=== PATIENT | male | born 1990 | race Caucasian/White ===

== ENCOUNTER 2018-05-28 15:44 | Emergency (ER) | payer MEDICAID | END 2018-05-28 16:02 | disposition left against medical advice (07) | LOC: ER 15:44 | DX: Z11.3 Encounter for screening for infections with a predominantly sexual mode of transmission (principal); Z53.21 Procedure and treatment not carried out due to patient leaving prior to being seen by health care provider ==

== ENCOUNTER 2018-07-20 13:30 | Emergency (ER) | payer MEDICAID ==
[~2018-07-20] VITALS: Ht 175.3 cm; Wt 75.0 kg
[2018-07-20 17:23] VITALS: BP 136/72
== END 2018-07-20 17:24 | disposition home or self-care (01) ==
LOC: ER 13:51
DX: Z76.0 Encounter for issue of repeat prescription (principal); Z20.2 Contact with and (suspected) exposure to infections with a predominantly sexual mode of transmission; F12.10 Cannabis abuse, uncomplicated
CPT/HCPCS: 99281

== ENCOUNTER 2019-01-14 01:07 | Emergency (ER) | payer MEDICAID ==
[~2019-01-14] VITALS: Ht 172.7 cm; Wt 72.0 kg
[2019-01-14 01:18] VITALS: BP 106/58
[2019-01-14] MEDS ORDERED: LIDOCAINE HCL 2% 5ML SYRINGE IV ONE (04:15)
[2019-01-14] MEDS ORDERED: LIDOCAINE HCL/PF 2% 20MG/ML 5 ML/VIAL INJ NR (04:30)
== END 2019-01-14 06:19 | disposition home or self-care (01) ==
LOC: ER 01:07
DX: L60.0 Ingrowing nail (principal); L03.031 Cellulitis of right toe
CPT/HCPCS: 11730; 99283; J3490; Z7610

== ENCOUNTER 2020-01-28 21:09 | Emergency (ER) | payer MEDICAID ==
[~2020-01-28] VITALS: Ht 172.7 cm; Wt 73.0 kg
[2020-01-28 21:17] VITALS: BP 120/76
[2020-01-28 21:44] LABS: CLARITY URINE CLEAR (CLEAR); COLOR URINE YELLOW (YELLOW); KETONES URINE 1+ (NEGATIVE); LEUKOCYTE ESTERASE URINE NEGATIVE (NEGATIVE); NITRITE URINE NEGATIVE (NEGATIVE); OCCULT BLOOD URINE NEGATIVE (NEGATIVE); PROTEIN URINE NEGATIVE (NEGATIVE); SPECIFIC GRAVITY URINE 1.013 (1.005-1.030); UROBILINOGEN URINE 0.2 E.U./dL (0.2-1.0)
[2020-01-28] MEDS ORDERED: LORAZEPAM 1MG TABLET PO ONE (21:45)
[2020-01-28] MEDS ORDERED: BLOOD SUGAR DIAGNOSTIC STRIP TEST ONE (21:45)
[2020-01-28 21:56] LABS: *AMPHETAMINES SCREEN URINE NEGATIVE (NEGATIVE); *BARBITURATES SCREEN URINE NEGATIVE (NEGATIVE); *BENZODIAZEPINES SCREEN URINE NEGATIVE (NEGATIVE); *COCAINE SCREEN URINE NEGATIVE (NEGATIVE); CANNABINOID URINE SCREEN PRESUMTIVE POSITIVE (NEGATIVE); METHADONE URINE SCREEN NEGATIVE (NEGATIVE); OPIATES URINE SCREEN NEGATIVE (NEGATIVE); PHENCYCLIDINE URINE SCREEN NEGATIVE (NEGATIVE)
== END 2020-01-28 22:31 | disposition home or self-care (01) ==
LOC: ER 21:09
DX: F41.9 Anxiety disorder, unspecified (principal); F43.9 Reaction to severe stress, unspecified; F32.9 Major depressive disorder, single episode, unspecified; F43.10 Post-traumatic stress disorder, unspecified
CPT/HCPCS: 80305; 81003; 82962; 93005; 99284

== ENCOUNTER 2020-03-03 15:34 | Emergency (ER) | payer MEDICAID ==
[~2020-03-03] VITALS: Ht 172.7 cm; Wt 71.0 kg
[2020-03-03 15:41] VITALS: BP 123/74
== END 2020-03-03 17:10 | disposition home or self-care (01) ==
LOC: ER 15:34
DX: R51 Headache (principal); F41.9 Anxiety disorder, unspecified; F32.9 Major depressive disorder, single episode, unspecified
CPT/HCPCS: 99281

== ENCOUNTER 2020-06-13 23:54 | Emergency (ER) | payer MEDICAID | END 2020-06-14 01:13 | disposition left against medical advice (07) | LOC: ER 23:54 | DX: Z53.21 Procedure and treatment not carried out due to patient leaving prior to being seen by health care provider (principal) ==

== ENCOUNTER 2020-06-15 03:19 | Emergency (ER) | payer MEDICAID, OTHER ==
[~2020-06-15] VITALS: Ht 180.3 cm; Wt 50.0 kg
[2020-06-15] MEDS ORDERED: ACETAMINOPHEN WITH CODEINE 300/30MG TABLET PO ONE (06:15)
[2020-06-15] MEDS ORDERED: LIDOCAINE HCL/PF 1% 10 MG/ML 5ML VIAL IJ ONE (06:30)
[2020-06-15 08:24] VITALS: BP 116/75
== END 2020-06-15 08:25 | disposition home or self-care (01) ==
LOC: ER 03:19
DX: L05.91 Pilonidal cyst without abscess (principal)
CPT/HCPCS: 72100; 99283; J3490

== ENCOUNTER 2021-03-09 03:28 | Emergency (ER) | payer MEDICAID ==
[~2021-03-09] VITALS: Ht 172.7 cm; Wt 71.0 kg
[2021-03-09] MEDS ORDERED: LIDOCAINE HCL/PF 1% 10 MG/ML 5ML VIAL INFIL ONE (04:00)
[2021-03-09] MEDS ORDERED: KETOROLAC 30MG/ML VIAL IM ONE (04:00)
[2021-03-09] MEDS ORDERED: BACITRACIN ZINC OINT UDPKT TOP ONE (04:00)
[2021-03-09 04:02] VITALS: BP 125/63
[2021-03-09] MEDS ORDERED: SULF1TAB48 PO (04:27)
[2021-03-09] MEDS ORDERED: CEPH500C2 PO (04:27)
[2021-03-09] MEDS ORDERED: IBUP-2029 PO (04:27)
== END 2021-03-09 04:48 | disposition home or self-care (01) ==
LOC: ER 03:28
DX: L05.01 Pilonidal cyst with abscess (principal); I25.2 Old myocardial infarction
CPT/HCPCS: 96372; 99283; J1885; J3490

== ENCOUNTER 2021-04-17 22:37 | Emergency (ER) | payer MEDICAID ==
[~2021-04-17] VITALS: Ht 172.7 cm; Wt 73.0 kg
[~2021-04-17 22:37] MED LIST: CEPH500C2 PO; IBUP-2029 PO; SULF1TAB48 PO
[2021-04-17 22:41] VITALS: BP 115/76
[2021-04-17] MEDS ORDERED: IBUP-2029 MT (23:24)
== END 2021-04-18 00:01 | disposition home or self-care (01) ==
LOC: ER 22:37
DX: R51.9 Headache, unspecified (principal); I25.2 Old myocardial infarction
CPT/HCPCS: 99282

== ENCOUNTER 2021-07-22 23:55 | Emergency (ER) | payer MEDICAID ==
[~2021-07-22] VITALS: Ht 172.7 cm; Wt 77.0 kg
[~2021-07-22 23:55] MED LIST changes: +IBUP-2029 MT
[2021-07-23] MEDS ORDERED: VISCOUS LIDOCAINE 2% 15 ML UDC MM ONE (00:30)
[2021-07-23] MEDS ORDERED: ACETAMINOPHEN 325MG TABLET PO ONE (00:30)
[2021-07-23 01:02] LABS: BASOPHILS % 0.4 % (0.0-2.0); EOSINOPHILS % 0.6 % (0.0-5.0); HEMATOCRIT. 45.7 % (42.0-52.0); HEMOGLOBIN. 15.2 g/dL (14.0-18.0); LYMPHOCYTES % 12.7 % (20.0-50.0); MEAN CORPUSCULAR HEMOGLOBIN 29.4 pg (28.0-32.0); MEAN CORPUSCULAR VOLUME 88.4 fL (80.0-94.0); MEAN PLATELET VOLUME 7.6 fl (7.4-10.4); MONOCYTES % 6.9 % (2.0-8.0); NEUTROPHILS % 79.4 % (40.0-76.0); PLATELET 244 x1000/uL (130-400); RED BLOOD CELL COUNT 5.18 mill/uL (4.7-6.1); RED CELL DISTRIBUTION WIDTH 13.8 % (11.6-14.6)
[2021-07-23 01:05] LABS: CHLORIDE 104 mEq/L (98-107)
[2021-07-23 01:09] LABS: ETHANOL BLOOD < 10 mg/dL
[2021-07-23] MEDS ORDERED: ALBU6.7H9 INH (01:22)
[2021-07-23] MEDS ORDERED: ACET-2708 MT (01:22)
[2021-07-23 02:00] LABS: *BENZODIAZEPINES SCREEN URINE NEGATIVE (NEGATIVE); *COCAINE SCREEN URINE NEGATIVE (NEGATIVE); METHADONE URINE SCREEN NEGATIVE (NEGATIVE); OPIATES URINE SCREEN NEGATIVE (NEGATIVE)
[2021-07-23 02:01] LABS: *AMPHETAMINES SCREEN URINE NEGATIVE (NEGATIVE); *BARBITURATES SCREEN URINE NEGATIVE (NEGATIVE); CANNABINOID URINE SCREEN NEGATIVE (NEGATIVE); PHENCYCLIDINE URINE SCREEN NEGATIVE (NEGATIVE)
[2021-07-23 02:49] VITALS: BP 128/65
== END 2021-07-23 02:51 | disposition left against medical advice (07) ==
LOC: ER 23:55
DX: R07.9 Chest pain, unspecified (principal); R51.9 Headache, unspecified; I10 Essential (primary) hypertension; R94.31 Abnormal electrocardiogram [ECG] [EKG]; I25.2 Old myocardial infarction
CPT/HCPCS: 36415; 71045; 80053; 80305; 80320; 83880; 84484; 85025; 85379; 93005; 99285; G0480

== ENCOUNTER 2023-10-15 06:53 | Emergency (ER) | payer MEDICAID, OTHER ==
[~2023-10-15] VITALS: Ht 172.7 cm; Wt 73.0 kg
[~2023-10-15 06:53] MED LIST changes: +ACET-2708 MT; +ALBU6.7H3 INH
[2023-10-15 07:34] VITALS: O2SAT 100
[2023-10-15 09:08] LABS: BASOPHILS % 0.4 % (0.0-2.0); EOSINOPHILS % 0.9 % (0.0-5.0); HEMATOCRIT. 44.4 % (42.0-52.0); HEMOGLOBIN. 14.8 g/dL (14.0-18.0); MEAN CORPUSCULAR HEMOGLOBIN 30.1 pg (28.0-32.0); MEAN CORPUSCULAR HGB CONC 33.4 g/dL (31.0-37.0); MEAN CORPUSCULAR VOLUME 90.1 fL (80.0-94.0); MEAN PLATELET VOLUME 7.3 fl (7.4-10.4); MONOCYTES % 11.9 % (2.0-8.0); NEUTROPHILS % 64.8 % (40.0-76.0); PLATELET 297 x1000/uL (130-400); RED BLOOD CELL COUNT 4.93 mill/uL (4.7-6.1); RED CELL DISTRIBUTION WIDTH 14.1 % (11.6-14.6); WHITE BLOOD COUNT 7.5 x1000/uL (4.5-11.0)
[2023-10-15 09:16] LABS: CHLORIDE 107 mEq/L (98-107); POTASSIUM 4.1 mEq/L (3.5-5.1); SODIUM 139 mEq/L (136-145)
[2023-10-15 09:17] LABS: CALCIUM 9.6 mg/dL (8.7-10.4); CARBON DIOXIDE 26 mEq/L (21-32)
[2023-10-15 09:22] LABS: CREATININE 0.9 mg/dL (0.6-1.3); GLUCOSE 94 mg/dL (70-105); UREA NITROGEN BLOOD 15 mg/dL (9-23)
[2023-10-15 09:24] LABS: ALANINE AMINOTRANSFERASE 16 IU/L (10-49); ALBUMIN 5.1 g/dL (3.2-4.8); ASPARTATE AMINOTRANSFERASE 21 IU/L (<34); BILIRUBIN TOTAL 1.4 mg/dL (0.1-1.0); PROTEIN TOTAL 8.3 g/dL (6.0-8.3); TROPONIN I HIGH SENSITIVITY 5 ng/L (3.0-53)
[2023-10-15] MEDS: ASPIRIN 325MG EC TABLET PO ONE (09:27)
[2023-10-15 11:43] LABS: TROPONIN I HIGH SENSITIVITY 5 ng/L (3.0-53)
[2023-10-15 13:11] VITALS: BP 142/89; PULSE 100; RESP 16; TEMP 98.8
== END 2023-10-15 13:07 | disposition home or self-care (01) ==
LOC: ER 06:53
DX: R07.9 Chest pain, unspecified (principal); F15.90 Other stimulant use, unspecified, uncomplicated; I25.2 Old myocardial infarction; I11.9 Hypertensive heart disease without heart failure; G43.909 Migraine, unspecified, not intractable, without status migrainosus
CPT/HCPCS: 36415; 71046; 80053; 83880; 84484; 85025; 93005; 99285

== ENCOUNTER 2023-12-03 15:06 | Emergency (ER) | payer OTHER ==
[~2023-12-03] VITALS: Ht 172.7 cm; Wt 70.3 kg
[2023-12-03 15:47] VITALS: BP 133/77; PULSE 82; RESP 16; TEMP 98.6; O2SAT 100
[2023-12-03 16:09] LABS: HEMATOCRIT 44.2 % (42.0-52.0); HEMOGLOBIN 14.8 g/dL (14.0-18.0); MEAN CORPUSCULAR HEMOGLOBIN 29.7 pg (28.0-32.0); MEAN CORPUSCULAR HGB CONC 33.5 g/dL (31.0-37.0); MEAN CORPUSCULAR VOLUME 88.8 fL (80.0-94.0); PLATELET 258 x1000/uL (130-400); RED BLOOD CELL COUNT 4.97 mill/uL (4.7-6.1); RED CELL DISTRIBUTION WIDTH 14.3 % (11.6-14.6); WHITE BLOOD COUNT 7.5 x1000/uL (4.5-11.0)
[2023-12-03 16:24] LABS: CHLORIDE 110 mEq/L (98-107); POTASSIUM 4.1 mEq/L (3.5-5.1); SODIUM 141 mEq/L (136-145)
[2023-12-03 16:25] LABS: CARBON DIOXIDE 24 mEq/L (21-32)
[2023-12-03 16:30] LABS: CREATININE 0.8 mg/dL (0.6-1.3); GLUCOSE 82 mg/dL (70-105)
[2023-12-03 16:31] LABS: UREA NITROGEN BLOOD 8 mg/dL (9-23)
[2023-12-03 16:35] LABS: TROPONIN I HIGH SENSITIVITY < 4 ng/L (3.0-53)
== END 2023-12-03 18:08 | disposition left against medical advice (07) ==
LOC: ER 15:06
DX: R42 Dizziness and giddiness (principal); Z53.21 Procedure and treatment not carried out due to patient leaving prior to being seen by health care provider
CPT/HCPCS: 36415; 80048; 84484; 85027; 93005

== ENCOUNTER 2023-12-12 20:36 | Emergency (ER) | payer MEDICAID, OTHER ==
[~2023-12-12] VITALS: Ht 172.7 cm; Wt 70.0 kg
[2023-12-12 20:49] VITALS: BP 153/96; PULSE 126; RESP 20; TEMP 98.2; O2SAT 99
[2023-12-12 23:44] LABS: BASOPHILS % 0.5 % (0.0-2.0); HEMATOCRIT. 42.7 % (42.0-52.0); HEMOGLOBIN. 14.5 g/dL (14.0-18.0); LYMPHOCYTES % 27.5 % (20.0-50.0); MEAN CORPUSCULAR HEMOGLOBIN 29.9 pg (28.0-32.0); MEAN CORPUSCULAR HGB CONC 33.9 g/dL (31.0-37.0); MEAN CORPUSCULAR VOLUME 88.2 fL (80.0-94.0); MEAN PLATELET VOLUME 7.5 fl (7.4-10.4); MONOCYTES % 8.6 % (2.0-8.0); NEUTROPHILS % 62.4 % (40.0-76.0); PLATELET 270 x1000/uL (130-400); RED BLOOD CELL COUNT 4.84 mill/uL (4.7-6.1); RED CELL DISTRIBUTION WIDTH 14.3 % (11.6-14.6); WHITE BLOOD COUNT 8.3 x1000/uL (4.5-11.0)
[2023-12-12 23:50] LABS: CARBON DIOXIDE 24 mEq/L (21-32); CHLORIDE 105 mEq/L (98-107); SODIUM 141 mEq/L (136-145)
[2023-12-12 23:51] LABS: CALCIUM 9.3 mg/dL (8.7-10.4)
[2023-12-12 23:55] LABS: CREATININE 0.9 mg/dL (0.6-1.3); GLUCOSE 89 mg/dL (70-105)
[2023-12-12 23:56] LABS: UREA NITROGEN BLOOD 11 mg/dL (9-23)
== END 2023-12-13 00:15 | disposition left against medical advice (07) ==
LOC: EDSEX → ER 20:36
DX: M54.2 Cervicalgia (principal); I25.2 Old myocardial infarction; I10 Essential (primary) hypertension; Z86.59 Personal history of other mental and behavioral disorders
CPT/HCPCS: 36415; 80048; 85025; 99283

== ENCOUNTER 2023-12-22 21:03 | Emergency (ER) | payer OTHER ==
[~2023-12-22] VITALS: Ht 172.7 cm; Wt 82.0 kg
[2023-12-22 21:13] VITALS: BP 144/101; PULSE 102; RESP 18; TEMP 98.2; O2SAT 98
[2023-12-22 22:01] LABS: BASOPHILS % 0.4 % (0.0-2.0); EOSINOPHILS % 0.7 % (0.0-5.0); HEMATOCRIT. 38.6 % (36.0-48.0); HEMOGLOBIN. 13.1 g/dL (12.0-16.0); LYMPHOCYTES % 29.7 % (20.0-50.0); MEAN CORPUSCULAR HEMOGLOBIN 29.9 pg (28.0-32.0); MEAN CORPUSCULAR HGB CONC 33.9 g/dL (31.0-37.0); MEAN CORPUSCULAR VOLUME 88.4 fL (81.0-99.0); MEAN PLATELET VOLUME 7.4 fl (7.4-10.4); NEUTROPHILS % 60.2 % (40.0-76.0); PLATELET 234 x1000/uL (130-400); RED BLOOD CELL COUNT 4.37 mill/uL (4.2-5.4); RED CELL DISTRIBUTION WIDTH 14.2 % (11.6-14.6); WHITE BLOOD COUNT 5.7 x1000/uL (4.5-11.0)
[2023-12-22 22:05] LABS: CHLORIDE 110 mEq/L (98-107); POTASSIUM 3.4 mEq/L (3.5-5.1); SODIUM 142 mEq/L (136-145)
[2023-12-22 22:06] LABS: CALCIUM 8.8 mg/dL (8.7-10.4); CARBON DIOXIDE 25 mEq/L (21-32)
[2023-12-22 22:09] LABS: HCG SCREEN NEGATIVE
[2023-12-22 22:11] LABS: CREATININE 0.8 mg/dL (0.6-1.0); GLUCOSE 90 mg/dL (70-105); UREA NITROGEN BLOOD 7 mg/dL (9-23)
[2023-12-22 22:12] LABS: TROPONIN I HIGH SENSITIVITY 4 ng/L (3.0-34)
[2023-12-22 22:13] LABS: ALANINE AMINOTRANSFERASE 14 IU/L (10-49); ALBUMIN 4.2 g/dL (3.2-4.8); ASPARTATE AMINOTRANSFERASE 19 IU/L (<34); BILIRUBIN TOTAL 1.3 mg/dL (0.1-1.0); PROTEIN TOTAL 6.5 g/dL (6.0-8.3)
== END 2023-12-22 23:56 | disposition home or self-care (01) ==
LOC: EDSEX 21:03 → ER 21:03
DX: R20.2 Paresthesia of skin (principal); F41.9 Anxiety disorder, unspecified; I10 Essential (primary) hypertension; I25.2 Old myocardial infarction; G43.909 Migraine, unspecified, not intractable, without status migrainosus; Z79.899 Other long term (current) drug therapy
CPT/HCPCS: 36415; 80053; 84484; 84703; 85025; 93005; 99284

== ENCOUNTER 2024-02-06 12:29 | Emergency (ER) | payer MEDICAID ==
[~2024-02-06] VITALS: Ht 175.3 cm; Wt 75.0 kg
[2024-02-06 12:41] VITALS: BP 159/101; RESP 18; TEMP 98.2; O2SAT 100
[2024-02-06 12:43] VITALS: PULSE 126; O2SAT 100
[2024-02-06 13:28] LABS: BASOPHILS % 0.3 % (0.0-2.0); EOSINOPHILS % 0.1 % (0.0-5.0); HEMATOCRIT. 40.1 % (36.0-48.0); HEMOGLOBIN. 13.4 g/dL (12.0-16.0); MEAN CORPUSCULAR HEMOGLOBIN 29.9 pg (28.0-32.0); MEAN CORPUSCULAR HGB CONC 33.4 g/dL (31.0-37.0); MEAN CORPUSCULAR VOLUME 89.4 fL (81.0-99.0); MEAN PLATELET VOLUME 7.6 fl (7.4-10.4); MONOCYTES % 8.1 % (2.0-8.0); NEUTROPHILS % 81.5 % (40.0-76.0); PLATELET 254 x1000/uL (130-400); RED BLOOD CELL COUNT 4.49 mill/uL (4.2-5.4); RED CELL DISTRIBUTION WIDTH 14.4 % (11.6-14.6); WHITE BLOOD COUNT 8.9 x1000/uL (4.5-11.0)
[2024-02-06 13:33] LABS: CHLORIDE 104 mEq/L (98-107); POTASSIUM 2.9 mEq/L (3.5-5.1); SODIUM 136 mEq/L (136-145)
[2024-02-06 13:34] LABS: CALCIUM 9.6 mg/dL (8.7-10.4); CARBON DIOXIDE 25 mEq/L (21-32)
[2024-02-06 13:39] LABS: CREATININE 0.7 mg/dL (0.6-1.0); GLUCOSE 103 mg/dL (70-105); UREA NITROGEN BLOOD 7 mg/dL (9-23)
[2024-02-06 13:42] LABS: TROPONIN I HIGH SENSITIVITY 5 ng/L (3.0-34)
[2024-02-06] MEDS: POTASSIUM CHLORIDE 20MEQ TABLET SR PO NR (14:46)
== END 2024-02-06 15:21 | disposition home or self-care (01) ==
LOC: ER 12:36
DX: E87.6 Hypokalemia (principal); F15.90 Other stimulant use, unspecified, uncomplicated; F41.9 Anxiety disorder, unspecified; I25.2 Old myocardial infarction; I10 Essential (primary) hypertension; Z86.59 Personal history of other mental and behavioral disorders
CPT/HCPCS: 36415; 80048; 84484; 85025; 93005; 99284

== ENCOUNTER 2024-02-06 21:23 | Emergency (ER) | payer MEDICAID ==
[~2024-02-06] VITALS: Ht 177.8 cm; Wt 73.0 kg
[2024-02-06 21:27] VITALS: BP 147/98; PULSE 98; RESP 16; TEMP 98; O2SAT 98
[2024-02-07 00:16] LABS: BASOPHILS % 0.5 % (0.0-2.0); EOSINOPHILS % 1.4 % (0.0-5.0); HEMATOCRIT. 41.2 % (36.0-48.0); MEAN CORPUSCULAR HEMOGLOBIN 30.6 pg (28.0-32.0); MEAN PLATELET VOLUME 7.3 fl (7.4-10.4); NEUTROPHILS % 66.1 % (40.0-76.0); PLATELET 265 x1000/uL (130-400); RED BLOOD CELL COUNT 4.58 mill/uL (4.2-5.4); RED CELL DISTRIBUTION WIDTH 14.6 % (11.6-14.6); WHITE BLOOD COUNT 6.9 x1000/uL (4.5-11.0)
[2024-02-07 00:21] LABS: CHLORIDE 107 mEq/L (98-107); POTASSIUM 3.6 mEq/L (3.5-5.1); SODIUM 139 mEq/L (136-145)
[2024-02-07 00:22] LABS: CALCIUM 9.5 mg/dL (8.7-10.4); CARBON DIOXIDE 25 mEq/L (21-32)
[2024-02-07 00:27] LABS: GLUCOSE 96 mg/dL (70-105); UREA NITROGEN BLOOD 10 mg/dL (9-23)
[2024-02-07 00:28] LABS: TROPONIN I HIGH SENSITIVITY 6 ng/L (3.0-34)
[2024-02-07 00:35] LABS: ETHANOL BLOOD < 10 mg/dL (<10)
== END 2024-02-07 04:25 | disposition left against medical advice (07) ==
LOC: ER 21:23
DX: R42 Dizziness and giddiness (principal); Z53.21 Procedure and treatment not carried out due to patient leaving prior to being seen by health care provider
CPT/HCPCS: 36415; 71045; 80048; 80320; 84484; 85025; G0480

== ENCOUNTER 2024-02-11 16:16 | Emergency (ER) | payer MEDICAID ==
[~2024-02-11] VITALS: Ht 177.8 cm; Wt 80.0 kg
[2024-02-11 16:18] VITALS: O2SAT 99
[2024-02-11] MEDS ORDERED: MECL-217 MT (18:21)
[2024-02-11 18:43] VITALS: BP 134/87; PULSE 89; RESP 18; TEMP 36.72516; O2SAT 100
== END 2024-02-11 18:53 | disposition home or self-care (01) ==
LOC: ER 16:16
DX: R42 Dizziness and giddiness (principal); M25.512 Pain in left shoulder; F41.9 Anxiety disorder, unspecified; I25.2 Old myocardial infarction; Z79.899 Other long term (current) drug therapy
CPT/HCPCS: 99283

== ENCOUNTER 2024-02-12 01:31 | Emergency (ER) | payer MEDICAID ==
[~2024-02-12] VITALS: Ht 172.7 cm; Wt 67.5 kg
[~2024-02-12 01:31] MED LIST changes: +MECL-217 MT
[2024-02-12 01:45] VITALS: O2SAT 99
[2024-02-12 01:57] LABS: BASOPHILS % 0.3 % (0.0-2.0); EOSINOPHILS % 0.3 % (0.0-5.0); HEMATOCRIT. 40.8 % (36.0-48.0); HEMOGLOBIN. 13.9 g/dL (12.0-16.0); LYMPHOCYTES % 30.8 % (20.0-50.0); MEAN CORPUSCULAR HEMOGLOBIN 30.7 pg (28.0-32.0); MEAN CORPUSCULAR HGB CONC 34.1 g/dL (31.0-37.0); MEAN CORPUSCULAR VOLUME 89.8 fL (81.0-99.0); MEAN PLATELET VOLUME 7.2 fl (7.4-10.4); MONOCYTES % 11.9 % (2.0-8.0); NEUTROPHILS % 56.7 % (40.0-76.0); PLATELET 255 x1000/uL (130-400); RED BLOOD CELL COUNT 4.54 mill/uL (4.2-5.4); RED CELL DISTRIBUTION WIDTH 14.4 % (11.6-14.6); WHITE BLOOD COUNT 7.1 x1000/uL (4.5-11.0)
[2024-02-12] MEDS ORDERED: HYDROXYZINE 25MG TABLET PO ONE (02:00)
[2024-02-12 02:03] LABS: CHLORIDE 106 mEq/L (98-107); POTASSIUM 3.2 mEq/L (3.5-5.1); SODIUM 138 mEq/L (136-145)
[2024-02-12 02:04] LABS: CALCIUM 9.6 mg/dL (8.7-10.4); CARBON DIOXIDE 24 mEq/L (21-32)
[2024-02-12 02:09] LABS: CREATININE 0.7 mg/dL (0.6-1.0); GLUCOSE 97 mg/dL (70-105); UREA NITROGEN BLOOD 9 mg/dL (9-23)
[2024-02-12 02:10] LABS: TROPONIN I HIGH SENSITIVITY 8 ng/L (3.0-34)
[2024-02-12] MEDS ORDERED: ACETAMINOPHEN 325MG TABLET PO ONE (02:15)
[2024-02-12] MEDS: ACETAMINOPHEN 325MG TABLET PO NR (02:30)
[2024-02-12] MEDS ORDERED: POTASSIUM CHLORIDE 20MEQ TABLET SR PO ONE (02:30)
[2024-02-12] MEDS: HYDROXYZINE 25MG TABLET PO NR (02:30)
[2024-02-12 02:43] LABS: CLARITY URINE CLEAR (CLEAR); COLOR URINE YELLOW (YELLOW); GLUCOSE URINE NEGATIVE (NEGATIVE); KETONES URINE 1+ (NEGATIVE); LEUKOCYTE ESTERASE URINE NEGATIVE (NEGATIVE); NITRITE URINE NEGATIVE (NEGATIVE); OCCULT BLOOD URINE NEGATIVE (NEGATIVE); PROTEIN URINE TRACE (NEGATIVE); UROBILINOGEN URINE 0.2 E.U./dL (0.2-1.0)
[2024-02-12] MEDS: POTASSIUM CHLORIDE 20MEQ TABLET SR PO NR (03:00)
[2024-02-12 03:03] LABS: BACTERIA URINE NONE SEEN; RBC URINE 0-2 /hpf (0-2); SQUAMOUS EPITHELIAL CELL URINE NONE SEEN /lpf (RARE/1+); WBC URINE 0-2 /hpf (0-2)
[2024-02-12 04:50] VITALS: BP 161/95; PULSE 91; RESP 18; TEMP 36.83628; O2SAT 100
== END 2024-02-12 04:50 | disposition home or self-care (01) ==
LOC: ER 01:52
DX: M25.512 Pain in left shoulder (principal); R42 Dizziness and giddiness; I25.2 Old myocardial infarction; F41.9 Anxiety disorder, unspecified; Z79.899 Other long term (current) drug therapy
CPT/HCPCS: 36415; 71045; 80048; 81003; 84484; 85025; 85379; 93005; 99285

== ENCOUNTER 2024-02-16 02:08 | Emergency (ER) | payer MEDICAID, OTHER ==
[~2024-02-16] VITALS: Ht 172.7 cm; Wt 73.0 kg
[2024-02-16 02:18] VITALS: O2SAT 97
[2024-02-16 03:50] VITALS: BP 124/80; PULSE 86; RESP 18; TEMP 97.5
[2024-02-16] MEDS: ACETAMINOPHEN 325MG TABLET PO NR (03:50)
[2024-02-16] MEDS: KETOROLAC 30MG/ML VIAL IM NR (03:50)
== END 2024-02-16 03:50 | disposition home or self-care (01) ==
LOC: ER 02:08
DX: M79.602 Pain in left arm (principal); I10 Essential (primary) hypertension; Z79.899 Other long term (current) drug therapy
CPT/HCPCS: 99283

== ENCOUNTER 2024-02-19 19:35 | Emergency (ER) | payer OTHER ==
[~2024-02-19] VITALS: Ht 172.7 cm; Wt 78.0 kg
[2024-02-19 19:44] VITALS: BP 136/94; PULSE 115; RESP 16; TEMP 98.4; O2SAT 98
[2024-02-20] MEDS ORDERED: HYDR10TA34 MT (04:51)
== END 2024-02-19 21:08 | disposition left against medical advice (07) ==
LOC: ER 19:35
DX: F41.9 Anxiety disorder, unspecified (principal); Z53.21 Procedure and treatment not carried out due to patient leaving prior to being seen by health care provider

== ENCOUNTER 2024-02-20 03:38 | Emergency (ER) | payer MEDICAID, OTHER ==
[~2024-02-20] VITALS: Ht 172.7 cm; Wt 82.0 kg
[2024-02-20 03:45] VITALS: O2SAT 98
[2024-02-20] MEDS ORDERED: HYDR10TA34 MT (04:51)
[2024-02-20] MEDS: LORAZEPAM 1MG TABLET PO ONE (04:52)
[2024-02-20 05:16] VITALS: BP 132/86; PULSE 103; RESP 18; TEMP 36.61404; O2SAT 99
== END 2024-02-20 05:18 | disposition home or self-care (01) ==
LOC: ER 03:59
DX: F15.90 Other stimulant use, unspecified, uncomplicated (principal); F41.9 Anxiety disorder, unspecified; F32.A Depression, unspecified; I10 Essential (primary) hypertension; Z79.899 Other long term (current) drug therapy
CPT/HCPCS: 93005; 99283

== ENCOUNTER 2024-03-07 17:18 | Emergency (ER) | payer MEDICAID ==
[~2024-03-07] VITALS: Ht 180.3 cm; Wt 70.0 kg
[~2024-03-07 17:18] MED LIST changes: +HYDR10TA34 MT
[2024-03-07 17:25] VITALS: TEMP 98.4; O2SAT 99
[2024-03-07 21:26] LABS: CHLORIDE 103 mEq/L (98-107); POTASSIUM 3.6 mEq/L (3.5-5.1); SODIUM 137 mEq/L (136-145)
[2024-03-07 21:27] LABS: CARBON DIOXIDE 26 mEq/L (21-32)
[2024-03-07 21:28] LABS: BASOPHILS % 0.5 % (0.0-2.0); CALCIUM 9.4 mg/dL (8.7-10.4); EOSINOPHILS % 0.1 % (0.0-5.0); HEMATOCRIT. 42.8 % (36.0-48.0); HEMOGLOBIN. 14.2 g/dL (12.0-16.0); LYMPHOCYTES % 23.6 % (20.0-50.0); MEAN CORPUSCULAR HEMOGLOBIN 29.9 pg (28.0-32.0); MEAN CORPUSCULAR HGB CONC 33.1 g/dL (31.0-37.0); MEAN CORPUSCULAR VOLUME 90.3 fL (81.0-99.0); MEAN PLATELET VOLUME 7.5 fl (7.4-10.4); MONOCYTES % 9.9 % (2.0-8.0); NEUTROPHILS % 65.9 % (40.0-76.0); PLATELET 277 x1000/uL (130-400); RED BLOOD CELL COUNT 4.74 mill/uL (4.2-5.4); RED CELL DISTRIBUTION WIDTH 13.6 % (11.6-14.6); WHITE BLOOD COUNT 7.6 x1000/uL (4.5-11.0)
[2024-03-07 21:32] LABS: CREATININE 0.9 mg/dL (0.6-1.0); GLUCOSE 96 mg/dL (70-105); UREA NITROGEN BLOOD 10 mg/dL (9-23)
[2024-03-07 22:00] VITALS: BP 0/0; PULSE 100; RESP 16; O2SAT 100
== END 2024-03-07 22:28 | disposition home or self-care (01) ==
LOC: ER 17:18
DX: M25.531 Pain in right wrist (principal); M25.532 Pain in left wrist; F15.10 Other stimulant abuse, uncomplicated; F41.9 Anxiety disorder, unspecified; F32.9 Major depressive disorder, single episode, unspecified; I10 Essential (primary) hypertension; Z79.899 Other long term (current) drug therapy
CPT/HCPCS: 36415; 73110; 80048; 85025; 99284

== ENCOUNTER 2024-05-14 01:06 | Emergency (ER) | payer MEDICAID ==
[~2024-05-14] VITALS: Ht 177.8 cm; Wt 82.0 kg
[2024-05-14 01:13] VITALS: TEMP 98.4; O2SAT 98
[2024-05-14] MEDS: CYCLOBENZAPRINE 10MG TABLET PO SCH (01:45)
[2024-05-14 02:07] VITALS: BP 151/83; PULSE 94; RESP 16
[2024-05-14] MEDS: KETOROLAC 15MG/ML VIAL IM ONE (02:07)
[2024-05-14] MEDS: LIDOCAINE 5% PATCH TOP SCH (02:07)
[2024-05-14] MEDS ORDERED: LIDO700A15 TP (02:35)
[2024-05-14] MEDS ORDERED: NAPR-1176 MT (02:35)
== END 2024-05-14 02:45 | disposition home or self-care (01) ==
LOC: ER 01:25
DX: M54.2 Cervicalgia (principal); J45.909 Unspecified asthma, uncomplicated; F15.90 Other stimulant use, unspecified, uncomplicated; I25.2 Old myocardial infarction; Z79.899 Other long term (current) drug therapy
CPT/HCPCS: 99283; 96372; J1885

== ENCOUNTER 2024-06-03 19:45 | Emergency (ER) | payer MEDICAID ==
[~2024-06-03] VITALS: Ht 175.3 cm; Wt 80.0 kg
[~2024-06-03 19:45] MED LIST changes: +LIDO700A15 TP; +NAPR-1176 MT
[2024-06-03 19:51] VITALS: BP 129/84; PULSE 78; RESP 18; TEMP 97.8; O2SAT 99
[2024-06-03 20:56] LABS: BASOPHILS % 0.5 % (0.0-2.0); EOSINOPHILS % 2.1 % (0.0-5.0); HEMATOCRIT. 40.2 % (36.0-48.0); HEMOGLOBIN. 13.8 g/dL (12.0-16.0); LYMPHOCYTES % 27.7 % (20.0-50.0); MEAN CORPUSCULAR HEMOGLOBIN 30.5 pg (28.0-32.0); MEAN CORPUSCULAR HGB CONC 34.2 g/dL (31.0-37.0); MEAN CORPUSCULAR VOLUME 89.1 fL (81.0-99.0); MEAN PLATELET VOLUME 7.3 fl (7.4-10.4); MONOCYTES % 9.3 % (2.0-8.0); NEUTROPHILS % 60.4 % (40.0-76.0); PLATELET 232 x1000/uL (130-400); RED BLOOD CELL COUNT 4.52 mill/uL (4.2-5.4); RED CELL DISTRIBUTION WIDTH 13.5 % (11.6-14.6); WHITE BLOOD COUNT 8.4 x1000/uL (4.5-11.0)
[2024-06-03 21:03] LABS: CHLORIDE 105 mEq/L (98-107); POTASSIUM 3.9 mEq/L (3.5-5.1); SODIUM 138 mEq/L (136-145)
[2024-06-03 21:04] LABS: CALCIUM 9.6 mg/dL (8.7-10.4); CARBON DIOXIDE 26 mEq/L (21-32)
[2024-06-03 21:09] LABS: CREATININE 0.9 mg/dL (0.6-1.0); GLUCOSE 88 mg/dL (70-105); UREA NITROGEN BLOOD 17 mg/dL (9-23)
== END 2024-06-03 22:18 | disposition home or self-care (01) ==
LOC: ER 19:45
DX: R53.1 Weakness (principal); F41.9 Anxiety disorder, unspecified; F15.90 Other stimulant use, unspecified, uncomplicated; Z79.899 Other long term (current) drug therapy
CPT/HCPCS: 36415; 80048; 85025; 99283

== ENCOUNTER 2024-06-15 19:40 | Emergency (ER) | payer MEDICAID ==
[~2024-06-15] VITALS: Ht 172.7 cm; Wt 70.1 kg
[2024-06-15 19:47] VITALS: BP 133/77; TEMP 98.6; O2SAT 98
[2024-06-15 19:54] VITALS: PULSE 100; RESP 16; O2SAT 96
[2024-06-16] MEDS: IBUPROFEN 400MG TABLET PO ONE (00:03)
[2024-06-16 00:24] LABS: BASOPHILS % 0.4 % (0.0-2.0); EOSINOPHILS % 1.6 % (0.0-5.0); HEMATOCRIT. 37.8 % (36.0-48.0); LYMPHOCYTES % 35.7 % (20.0-50.0); MEAN CORPUSCULAR HEMOGLOBIN 30.3 pg (28.0-32.0); MEAN CORPUSCULAR HGB CONC 34.3 g/dL (31.0-37.0); MEAN CORPUSCULAR VOLUME 88.4 fL (81.0-99.0); MEAN PLATELET VOLUME 7.4 fl (7.4-10.4); MONOCYTES % 8.9 % (2.0-8.0); NEUTROPHILS % 53.4 % (40.0-76.0); PLATELET 293 x1000/uL (130-400); RED BLOOD CELL COUNT 4.28 mill/uL (4.2-5.4); RED CELL DISTRIBUTION WIDTH 13.6 % (11.6-14.6); WHITE BLOOD COUNT 7.3 x1000/uL (4.5-11.0)
[2024-06-16 00:37] LABS: D-DIMER 0.22 mg/L FEU (<0.50); PARTIAL THROMBOPLASTIN TIME 26.8 sec (23.4-31.0)
[2024-06-16 00:42] LABS: CHLORIDE 114 mEq/L (98-107); POTASSIUM 4.1 mEq/L (3.5-5.1); SODIUM 146 mEq/L (136-145)
[2024-06-16 00:43] LABS: CARBON DIOXIDE 25 mEq/L (21-32)
[2024-06-16 00:44] LABS: CALCIUM 9.2 mg/dL (8.7-10.4)
[2024-06-16 00:48] LABS: CREATININE 0.8 mg/dL (0.6-1.0); GLUCOSE 94 mg/dL (70-105); TROPONIN I HIGH SENSITIVITY 4 ng/L (3.0-34); UREA NITROGEN BLOOD 16 mg/dL (9-23)
[2024-06-16 00:51] LABS: THYROID STIMULATING HORMONE 1.26 uIU/mL (0.55-4.78)
[2024-06-16 00:59] LABS: HCG SCREEN NEGATIVE
[2024-06-16] MEDS ORDERED: IBUP-2028 MT (01:19)
== END 2024-06-16 01:16 | disposition home or self-care (01) ==
LOC: ER 19:40
DX: R07.9 Chest pain, unspecified (principal); R00.2 Palpitations; R51.9 Headache, unspecified; I21.9 Acute myocardial infarction, unspecified; M19.90 Unspecified osteoarthritis, unspecified site; F41.9 Anxiety disorder, unspecified; F15.90 Other stimulant use, unspecified, uncomplicated
CPT/HCPCS: 36415; 71045; 80048; 84443; 84484; 84703; 85025; 85379; 93005; 99285

== ENCOUNTER 2024-06-18 13:18 | Emergency (ER) | payer MEDICAID, OTHER ==
[~2024-06-18] VITALS: Ht 177.8 cm; Wt 78.0 kg
[~2024-06-18 13:18] MED LIST changes: +IBUP-2028 MT
[2024-06-18 13:24] VITALS: BP 150/98; PULSE 100; RESP 18; TEMP 98.6; O2SAT 99
[2024-06-18] MEDS ORDERED: ONDANSETRON 4MG ODT PO STA (13:25)
[2024-06-18 15:08] LABS: CHLORIDE 105 mEq/L (98-107); POTASSIUM 3.7 mEq/L (3.5-5.1); SODIUM 138 mEq/L (136-145)
[2024-06-18 15:09] LABS: CALCIUM 9.6 mg/dL (8.7-10.4); CARBON DIOXIDE 26 mEq/L (21-32)
[2024-06-18 15:13] LABS: BASOPHILS % 0.5 % (0.0-2.0); EOSINOPHILS % 0.7 % (0.0-5.0); HEMATOCRIT. 40.5 % (36.0-48.0); HEMOGLOBIN. 13.7 g/dL (12.0-16.0); LYMPHOCYTES % 17.8 % (20.0-50.0); MEAN CORPUSCULAR HGB CONC 33.8 g/dL (31.0-37.0); MEAN CORPUSCULAR VOLUME 88.7 fL (81.0-99.0); MEAN PLATELET VOLUME 7.3 fl (7.4-10.4); MONOCYTES % 8.7 % (2.0-8.0); NEUTROPHILS % 72.3 % (40.0-76.0); PLATELET 293 x1000/uL (130-400); RED BLOOD CELL COUNT 4.57 mill/uL (4.2-5.4); RED CELL DISTRIBUTION WIDTH 13.8 % (11.6-14.6); WHITE BLOOD COUNT 6.1 x1000/uL (4.5-11.0)
[2024-06-18 15:14] LABS: CREATININE 0.8 mg/dL (0.6-1.0); GLUCOSE 97 mg/dL (70-105); UREA NITROGEN BLOOD 10 mg/dL (9-23)
== END 2024-06-18 13:43 | disposition left against medical advice (07) ==
LOC: ER 13:18
DX: R42 Dizziness and giddiness (principal); F15.10 Other stimulant abuse, uncomplicated; I25.2 Old myocardial infarction; Z79.899 Other long term (current) drug therapy
CPT/HCPCS: 36415; 80048; 85025; 99283

== ENCOUNTER 2024-06-25 21:21 | Emergency (ER) | payer OTHER ==
[~2024-06-25] VITALS: Ht 172.7 cm; Wt 83.0 kg
[2024-06-25 21:29] VITALS: BP 139/89; PULSE 89; RESP 18; TEMP 98.3; O2SAT 100
== END 2024-06-26 02:37 | disposition home or self-care (01) ==
LOC: ER 21:21
DX: M54.2 Cervicalgia (principal); I10 Essential (primary) hypertension; Z79.1 Long term (current) use of non-steroidal anti-inflammatories (NSAID)
CPT/HCPCS: 72040; 99283; Z7610; A4606

== ENCOUNTER 2024-07-02 22:16 | Emergency (ER) | payer MEDICAID, OTHER ==
[~2024-07-02] VITALS: Ht 172.7 cm; Wt 77.4 kg
[2024-07-02 22:21] VITALS: BP 126/87; RESP 16; TEMP 98.7; O2SAT 98
[2024-07-02 22:22] VITALS: PULSE 99; O2SAT 100
== END 2024-07-03 02:09 | disposition left against medical advice (07) ==
LOC: ER 22:16
DX: M54.2 Cervicalgia (principal); F41.9 Anxiety disorder, unspecified; J45.909 Unspecified asthma, uncomplicated; I25.2 Old myocardial infarction; Z53.21 Procedure and treatment not carried out due to patient leaving prior to being seen by health care provider

== ENCOUNTER 2024-07-07 16:54 | Emergency (ER) | payer OTHER ==
[~2024-07-07] VITALS: Ht 172.7 cm; Wt 64.0 kg
[2024-07-07 18:11] VITALS: PULSE 93; RESP 24; O2SAT 97
[2024-07-07] MEDS: IPRATROPIUM/ALBUTEROL 0.5-3(2.5)MG/3ML NEB HHN ONE (18:15)
[2024-07-07] MEDS ORDERED: ALBU90AE INH (18:29)
[2024-07-08 08:20] VITALS: BP 148/84; PULSE 84; RESP 19; TEMP 36.94740; O2SAT 97
== END 2024-07-08 08:21 | disposition home or self-care (01) ==
LOC: ER 16:54
DX: J45.901 Unspecified asthma with (acute) exacerbation (principal); F15.90 Other stimulant use, unspecified, uncomplicated; Z79.1 Long term (current) use of non-steroidal anti-inflammatories (NSAID)
CPT/HCPCS: 71045; 94640; 94070; 99283; Z7610 ×2

== ENCOUNTER 2024-07-08 10:41 | Emergency (ER) | payer OTHER ==
[~2024-07-08] VITALS: Ht 172.7 cm; Wt 77.0 kg
[~2024-07-08 10:41] MED LIST changes: +ALBU90AE INH
[2024-07-08 10:55] VITALS: BP 128/83; TEMP 98.3; O2SAT 99
[2024-07-08 11:00] VITALS: PULSE 68; RESP 18; O2SAT 99
== END 2024-07-09 00:35 | disposition left against medical advice (07) ==
LOC: ER 10:41
DX: J45.909 Unspecified asthma, uncomplicated (principal); Z59.00 Homelessness unspecified; M19.90 Unspecified osteoarthritis, unspecified site; Z79.1 Long term (current) use of non-steroidal anti-inflammatories (NSAID)
CPT/HCPCS: 99281; A4663; 99283; A4606

== ENCOUNTER 2024-12-25 05:04 | Emergency (ER) | payer MEDICAID, OTHER ==
[~2024-12-25] VITALS: Ht 172.7 cm; Wt 68.5 kg
[~2024-12-25 05:04] MED LIST changes: +LIDO-53 TP; -LIDO700A15 TP
[2024-12-25 05:07] VITALS: O2SAT 100
[2024-12-25 07:03] LABS: CLARITY URINE CLEAR (CLEAR); COLOR URINE YELLOW (YELLOW); GLUCOSE URINE NEGATIVE (NEGATIVE); KETONES URINE NEGATIVE (NEGATIVE); LEUKOCYTE ESTERASE URINE NEGATIVE (NEGATIVE); NITRITE URINE NEGATIVE (NEGATIVE); OCCULT BLOOD URINE NEGATIVE (NEGATIVE); PH URINE 6.5 (4.5-8.0); PROTEIN URINE NEGATIVE (NEGATIVE); SPECIFIC GRAVITY URINE 1.019 (1.005-1.030); UROBILINOGEN URINE 1.0 E.U./dL (0.2-1.0)
[2024-12-25 07:12] LABS: *AMPHETAMINES SCREEN URINE NEGATIVE (NEGATIVE)
[2024-12-25 07:13] LABS: *BARBITURATES SCREEN URINE NEGATIVE (NEGATIVE); *BENZODIAZEPINES SCREEN URINE NEGATIVE (NEGATIVE); *COCAINE SCREEN URINE NEGATIVE (NEGATIVE); CANNABINOID URINE SCREEN NEGATIVE (NEGATIVE); ECSTASY MDMA SCREEN URINE NEGATIVE (NEGATIVE); METHADONE URINE SCREEN NEGATIVE (NEGATIVE); OPIATES URINE SCREEN NEGATIVE (NEGATIVE); PHENCYCLIDINE URINE SCREEN NEGATIVE (NEGATIVE)
[2024-12-25 07:26] LABS: BASOPHILS % 0.4 % (0.0-2.0); EOSINOPHILS % 2.0 % (0.0-5.0); HEMATOCRIT. 40.0 % (36.0-48.0); HEMOGLOBIN. 13.6 g/dL (12.0-16.0); LYMPHOCYTES % 25.5 % (20.0-50.0); MEAN PLATELET VOLUME 7.3 fl (7.4-10.4); MONOCYTES % 8.5 % (2.0-8.0); NEUTROPHILS % 63.6 % (40.0-76.0); PLATELET 360 x1000/uL (130-400); RED BLOOD CELL COUNT 4.62 mill/uL (4.2-5.4); RED CELL DISTRIBUTION WIDTH 13.5 % (11.6-14.6)
[2024-12-25 07:45] LABS: CREATININE 0.8 mg/dL (0.6-1.0)
[2024-12-25 07:46] LABS: ETHANOL BLOOD < 10 mg/dL (<10); UREA NITROGEN BLOOD 23 mg/dL (9-23)
[2024-12-25 10:00] VITALS: BP 131/71; PULSE 78; RESP 20; TEMP 36.8; O2SAT 100
== END 2024-12-25 10:10 | disposition home or self-care (01) ==
LOC: ER 05:04
DX: J45.909 Unspecified asthma, uncomplicated (principal); Z79.899 Other long term (current) drug therapy
CPT/HCPCS: 36415; 80048; 80305; 80320; 81003; 85025; 99283; G0480

== ENCOUNTER 2025-01-28 22:56 | Emergency (ER) | payer MEDICAID, OTHER ==
[~2025-01-28] VITALS: Ht 172.7 cm; Wt 66.0 kg
[2025-01-28 22:59] VITALS: O2SAT 99
[2025-01-29 00:12] LABS: BASOPHILS % 0.1 % (0.0-2.0); EOSINOPHILS % 1.7 % (0.0-5.0); HEMATOCRIT. 43.8 % (36.0-48.0); HEMOGLOBIN. 14.5 g/dL (12.0-16.0); LYMPHOCYTES % 17.0 % (20.0-50.0); MEAN PLATELET VOLUME 7.3 fl (7.4-10.4); MONOCYTES % 6.9 % (2.0-8.0); NEUTROPHILS % 74.3 % (40.0-76.0); PLATELET 296 x1000/uL (130-400); RED BLOOD CELL COUNT 5.00 mill/uL (4.2-5.4); RED CELL DISTRIBUTION WIDTH 14.2 % (11.6-14.6)
[2025-01-29 00:21] LABS: CLARITY URINE CLOUDY (CLEAR); COLOR URINE DARK YELLOW (YELLOW); GLUCOSE URINE NEGATIVE (NEGATIVE); KETONES URINE 1+ (NEGATIVE); LEUKOCYTE ESTERASE URINE TRACE (NEGATIVE); NITRITE URINE NEGATIVE (NEGATIVE); OCCULT BLOOD URINE NEGATIVE (NEGATIVE); PH URINE 5.5 (4.5-8.0); PROTEIN URINE 2+ (NEGATIVE); SPECIFIC GRAVITY URINE 1.029 (1.005-1.030); UROBILINOGEN URINE 1.0 E.U./dL (0.2-1.0)
[2025-01-29 00:26] LABS: CREATININE 1.3 mg/dL (0.6-1.0); UREA NITROGEN BLOOD 19 mg/dL (9-23)
[2025-01-29 00:28] LABS: ASPARTATE AMINOTRANSFERASE 37 IU/L (<34); BILIRUBIN DIRECT 0.5 mg/dL (<=3.0); BILIRUBIN TOTAL 1.9 mg/dL (0.1-1.0); PROTEIN TOTAL 7.8 g/dL (6.0-8.3)
[2025-01-29 01:09] VITALS: BP 128/80; PULSE 85; RESP 16; TEMP 36.8; O2SAT 99
[2025-01-29 01:11] LABS: HCG SCREEN NEGATIVE
[2025-01-29 01:54] LABS: SQUAMOUS EPITHELIAL CELL URINE 2+ /lpf (RARE/1+)
[2025-01-29 01:55] LABS: BACTERIA URINE TRACE; CALCIUM OXALATE CRYSTALS URINE 3+ /lpf; RBC URINE NONE SEEN /hpf (0-2); WBC URINE 0-2 /hpf (0-2)
[2025-01-29 02:04] LABS: *AMPHETAMINES SCREEN URINE PRESUMPTIVE POSITIVE (NEGATIVE); *BARBITURATES SCREEN URINE NEGATIVE (NEGATIVE); *BENZODIAZEPINES SCREEN URINE NEGATIVE (NEGATIVE); *COCAINE SCREEN URINE NEGATIVE (NEGATIVE)
[2025-01-29 02:05] LABS: CANNABINOID URINE SCREEN NEGATIVE (NEGATIVE); ECSTASY MDMA SCREEN URINE CONF.TEST INDICATED (NEGATIVE); HYALINE CASTS URINE TNTC /lpf; METHADONE URINE SCREEN NEGATIVE (NEGATIVE); OPIATES URINE SCREEN NEGATIVE (NEGATIVE); PHENCYCLIDINE URINE SCREEN NEGATIVE (NEGATIVE)
== END 2025-01-29 02:59 | disposition home or self-care (01) ==
LOC: ER 22:56
DX: F15.10 Other stimulant abuse, uncomplicated (principal); J45.909 Unspecified asthma, uncomplicated; M19.90 Unspecified osteoarthritis, unspecified site; Z59.00 Homelessness unspecified; Z79.1 Long term (current) use of non-steroidal anti-inflammatories (NSAID); Z79.899 Other long term (current) drug therapy
CPT/HCPCS: 36415; 80048; 80076; 80305; 81003; 84703; 85025; 99283

== ENCOUNTER 2025-01-29 03:14 | Emergency (ER) | payer MEDICAID ==
[2025-01-29 05:09] VITALS: BP 139/70; PULSE 91; RESP 18; TEMP 36.9; O2SAT 100
== END 2025-01-29 06:27 | disposition home or self-care (01) ==
LOC: ER 03:14
DX: Z00.00 Encounter for general adult medical examination without abnormal findings (principal); F15.10 Other stimulant abuse, uncomplicated; J45.909 Unspecified asthma, uncomplicated; I25.2 Old myocardial infarction; Z76.0 Encounter for issue of repeat prescription; Z98.890 Other specified postprocedural states; Z79.899 Other long term (current) drug therapy
CPT/HCPCS: 99281

== ENCOUNTER 2025-02-18 18:36 | Emergency (ER) | payer MEDICAID ==
[~2025-02-18] VITALS: Ht 175.3 cm; Wt 68.0 kg
[~2025-02-18 18:36] MED LIST changes: +IBUP-1455 MT; +IBUP-1455 PO; -IBUP-2029 MT; -IBUP-2029 PO
[2025-02-18 18:57] VITALS: BP 132/73; PULSE 98; RESP 18; TEMP 37; O2SAT 99
[2025-02-18 22:17] LABS: HCG SCREEN NEGATIVE
== END 2025-02-19 00:32 | disposition home or self-care (01) ==
LOC: ER 18:36
DX: R20.0 Anesthesia of skin (principal); M19.90 Unspecified osteoarthritis, unspecified site; J45.909 Unspecified asthma, uncomplicated; I25.2 Old myocardial infarction; Z79.1 Long term (current) use of non-steroidal anti-inflammatories (NSAID)
CPT/HCPCS: 84703; 99283

== ENCOUNTER 2025-02-19 12:27 | Emergency (ER) | payer MEDICAID ==
[~2025-02-19] VITALS: Ht 177.8 cm; Wt 75.0 kg
[2025-02-19 12:31] VITALS: BP 129/69; PULSE 95; RESP 18; TEMP 36.9; O2SAT 99
== END 2025-02-19 14:30 | disposition home or self-care (01) ==
LOC: ER 12:27
DX: Z00.00 Encounter for general adult medical examination without abnormal findings (principal); I25.2 Old myocardial infarction; J45.909 Unspecified asthma, uncomplicated
CPT/HCPCS: 99284